=== PATIENT | female | born 1980 | race Caucasian/White ===

== ENCOUNTER → 2023-12-06 06:38 | Outpatient (REF) | payer OTHER, SELFPAY ==
[2023-12-06 09:05] LABS: % Basophils 0.4 % (0-2); % Immature Granulocytes 0.4 % (0-0.5); % Lymphocytes 34.3 % (20.5-51.1); % Monocytes 11.4 % (1.7-9.3); % Neutrophils 51.5 % (42.2-75.2); Absolute Eosinophils 0.1 10^3/uL (0-0.7); Absolute Lymphocytes 1.9 10^3/uL (1.2-3.4); Absolute Monocytes 0.6 10^3/uL (0.1-0.6); Absolute Neutrophils 2.8 10^3/uL (1.4-6.5); Hematocrit 37.8 % (37.0-47.0); Mean Corp Hgb Conc. 34.4 g/dL (33.0-37.0); Mean Corpuscular Hgb 32.5 pg (27.0-31.0); Mean Corpuscular Volume 94.5 fL (81.0-99.0); Mean Platelet Volume 8.6 fL (7.4-10.4); Nucleated Red Blood Cells % 0 %; Platelet Count 232 10^3/uL (130-400); Red Cell Dist. Width 12.2 % (11.5-14.5); White Blood Cell Count 5.4 10^3/uL (4.8-10.8)
[2023-12-06 09:19] LABS: ALT (SGPT) 15 U/L (0-35); AST (SGOT) 21 U/L (14-36); Alkaline Phosphatase 75 U/L (38-126); Blood Urea Nitrogen 21 mg/dl (7-17); Calcium 8.9 mg/dl (8.4-10.2); Carbon Dioxide 24 mmol/L (22-30); Chloride 109 mmol/L (98-107); Glucose 101 mg/dl (70-99); HDL Cholesterol 44 mg/dl; LDL Cholesterol, Calculated 105 mg/dl; Sodium 140 mmol/L (135-145); Total Bilirubin 0.6 mg/dl (0.2-1.3); Total Cholesterol 170 mg/dl (50-199); Total Protein 6.8 g/dl (6.3-8.2); Triglyceride 107 mg/dl (10-149); Uric Acid 4.8 mg/dl (2.5-6.2); Very Low Density Lipoprotein 21 mg/dl (0-30); eGFR > 60.00
[2023-12-06 09:29] LABS: Vitamin D, 25-OH*** 45.6 ng/mL (30-80)
[2023-12-06 09:38] LABS: Glycohemoglobin (HgbA1c) 5.7 % (4.0-5.6)
[2023-12-06 09:43] LABS: Cortisol, Random 15.6 ug/dl
[2023-12-06 09:50] LABS: CRP, Highly Sensitive 5.87 mg/L
[2023-12-06 10:19] LABS: Folate 13.9 ng/ml (2.76-20); Vitamin B12 509 pg/ml (239-931)
[2023-12-06 10:22] LABS: TSH Reflex To Free T4 1.65 uIU/ml (0.47-4.68)
== END ==
LOC: HWLAB 06:38
PROVIDERS: ATTENDING PHYSICIAN Nurse Practitioner Family
DX: R73.03 Prediabetes (principal); E78.1 Pure hyperglyceridemia; E55.9 Vitamin D deficiency, unspecified; I10 Essential (primary) hypertension; R53.83 Other fatigue; R63.2 Polyphagia; E53.8 Deficiency of other specified B group vitamins
CPT/HCPCS: 36415; 80053; 80061; 82306; 82533; 82607; 82746; 83036; 84443; 84550; 85025; 86141

== ENCOUNTER → 2023-12-09 06:53 | Outpatient (REF) | payer OTHER, SELFPAY | LOC: HWRAD 06:53 | PROVIDERS: ATTENDING PHYSICIAN Nurse Practitioner Family; FAMILY PHYSICIAN Family Medicine | DX: R22.1 Localized swelling, mass and lump, neck (principal) | CPT/HCPCS: 76536 ==

== ENCOUNTER 2024-08-28 07:02 | Emergency (ER) | payer OTHER, SELFPAY ==
[2024-08-28 07:04] VITALS: BP 157/110
--- NOTE | 2024-08-28 08:36 | ED.GENMED ---
History of Present Illness
General
Chief Complaint: Anxiety
Source: patient
Exam Limitations: none
Time Seen by Provider: 08/28/24 08:25
Nursing documentation reviewed up to this point in time: agreed with
History of Present Illness
History of Present Illness:
44-year-old female presents emergency department due to feeling dizzy, and with a rapid heart rate in the 140s to 160s that she noted on her [employer] watch. She had a panic attack, and took an Ativan in the waiting room.
Past History
Past History
ED Past Medical History: HTN, Psychiatric (takes medication for depression) and Other (Help syndrome)
ED Past Surgical History: Other (History of laparoscopy and wisdom teeth extraction)
Social History
Tobacco: Non-smoker
Alcohol: None
Drug: None
Personal:
Living: with family
Employment: Employed
Review of Systems
Review of Systems
Allergies reviewed?: Yes
All Other Systems: Not applicable
Constitutional: Reports no symptoms
EENT: Reports no symptoms
Respiratory: Reports no symptoms
Cardiac: Reports palpitations
ABD/GI: Reports no symptoms
: Reports no symptoms
Musculoskeletal: Reports no symptoms
Skin: Reports no symptoms
Neurological: Reports dizzy
Endocrine: Reports no symptoms
Hematologic/Lymphatic: Reports no symptoms
Phy Exam
Physical Exam
Physical Exam:
Physical Exam
General: no apparent distress, not acutely ill
Neck: supple. no meningeal signs. normal posterior pharynx
Heart: s1/s2 tachycardia, regular rhythm, no murmur. equal radial
pulses.
HEENT: Pupils equal round reactive to light, EOMI
Lungs: no acute respiratory distress. clear bilaterally
Abdomen: normal bowel sounds. not tender. no CVAT
Neuro: alert and oriented. no focal neurological deficits cranial nerves II through XII intact
Skin: no rash
Psychiatric: well kept. interactive and cooperative
Extremities: no edema. no calf tenderness. negative homans. good distal pulses
Scores
Heart Score for Chest Pain Patients
STEMI patient?: No
History: Slightly or Non-Suspicious
ECG: Normal
Age: </= 45 years
Risk Factors: No Risk Factors
Troponin: </= Normal Limit
Heart Score for Chest Pain Patients: 0
Heart Score Risk: 2.5% MACE over next 6 weeks
Course
Orders/Labs/Results
Orders:
Orders
08/28/24 07:04
Electrocardiogram (*1) Urgent
Reason for Study: Bradycardia / Tachycardia
EKG- Treatment ONCE
08/28/24 08:45
Cardiac Monitoring- Treatment ONCE
IV Insert/Care/Rem.- Treatment PRN
08/28/24 08:56
Complete Blood Count/With Diff Urgent
Troponin I Urgent
08/28/24 08:57
Comprehensive Metabolic Panel Urgent
D-Dimer Urgent
HCG, Serum Qualitative Screen Urgent
Magnesium Urgent
TSH Reflex To Free T4 Urgent
08/28/24 09:27
Add On- LAB Urgent
Tests Added?: hcg serum qual
08/28/24 09:30
CT Chest PE Study Urgent
Comment:
Reason For Exam: chest pain, tachycardia, elevated ddimer
Abnormal Lab Results
08/28/24 08/28/24
08:56 08:57
RBC 4.09 L 10^6/uL
(4.20-5.40)
MCH 33.5 H pg
(27.0-31.0)
Absolute Lymphs (auto) 1.0 L 10^3/uL
(1.2-3.4)
Neutrophils % 75.8 H %
(42.2-75.2)
Lymphocytes % 14.9 L %
(20.5-51.1)
D-Dimer 0.58 H ug/mlFEU
(0.00-0.50)
BUN 21 H mg/dl
(7-17)
Glucose 157 H mg/dl
(70-99)
08/28/24 08:56
08/28/24 08:57
Vital Signs
Initial and Last Documented VS:
Initial Vital Signs
Temp Pulse Resp BP Pulse Ox
98.7 F 130 20 157/110 97
08/28/24 07:04 08/28/24 07:04 08/28/24 07:04 08/28/24 07:04 08/28/24 07:04
Last Documented Vital Signs
Temp Pulse Resp BP Pulse Ox
98.7 F 108 18 144/101 98
08/28/24 07:04 08/28/24 09:02 08/28/24 09:02 08/28/24 09:00 08/28/24 09:06
MDM/Problems Addressed
Differential Diagnosis Includes:
ACS, PE, dissection, anxiety, dysrhythmia
MDM/Problems Addressed:
44-year-old female with dizziness, palpitations. No signs of dysrhythmia. D-dimer elevated, negative CT of chest. Do not suspect ACS, PE or dissection. No signs of dysrhythmia. Patient stable for discharge. Follow-up with cardiology. Return
precautions given.
*Radiology
Radiology exam reviewed: radiology read reviewed (CT chest no acute findings, no PE, hiatal hernia)
*Pulse Oximetry
Patient hypoxic: no
*EKG
Interpreted by ED Provider?: Yes
EKG Intrepretation Date: 08/28/24
EKG Intrepretation Time: 07:06
Interpretation: abnormal
Comparison EKG: no changes
Heart Rate: 116
Rate: tachycardiac
Rhythm: sinus tachycardia
[place]: normal axis
Interval: long QT
QRS Pattern: normal QRS
Ischemia: no ischemia
*Hydroblaster Interpretation
Rate: normal
Interpretation: normal
Heart Rate: 100
Rhythm: sinus
*Critical Care Note
Total Time (30-74mins, 75-104mins- exclusive of procedures): Not Applicable
Data Reviewed
Review of Other/Old Records Reveals: Testing (Prior EKG reviewed, no significant changes)
Source: records
Patient Management
Social determinants of health affecting care: Living situation and Strong social support
Escalation/DeEscalation of care consider admission/obs:
Admit not indicated
ED Attending Note
-
Portions of this chart may have been created with voice recognition software.� Occasional wrong word or��sound alike� substitutions may have occurred due to the inherent limitations of voice recognition software.
Discharge Plan
Departure
Patient Disposition: Home (Routine Discharge)
Date of Disposition: 08/28/24
Time of Disposition: 10:16
Patient with high blood pressure during this ER visit?: Yes
Condition: Good
Discharge Problem:
Heart palpitations, Hernia, hiatal
Instructions: Palpitations, Hiatal hernia - Discharge instructions, BLOOD PRESSURE
Prescriptions:
No Action
escitalopram oxalate 10 MG tablet
20 mg PO DAILY
triamcinolone acetonide [Nasacort] 10.8 ML aerosol,spray
1 spray NS DAILY
lorazepam 1 MG tablet
1 mg PO Q4HPRN PRN (Reason: anxiety)
levocetirizine [Xyzal] 5 MG tablet
5 mg PO DAILY
Referrals:
Janine Mcnamara MD [Family Provider] -
Activity Restrictions/Additional Instructions:
Follow-up with your cleaner furniture. Return for any concerns.
Interventions
Interventions:
*Risk Screen - Suicide Last Done: 08/28/24 07:04
*General Assessment Last Done: 08/28/24 09:06
*Neglect/Abuse Screening Last Done: 08/28/24 07:04
ED- Fall Risk Assessment Last Done: 08/28/24 09:06
*ED COVID-19 Vaccine History Last Done: 08/28/24 09:06
ED-Psychological Assessment Last Done: 08/28/24 09:06
Discharge Date and Time
Print Language: [place]
[2024-08-28 09:00] VITALS: BP 144/101
[2024-08-28 09:13] LABS: % Basophils 0.3 % (0-2); % Eosinophils 0.3 % (0-6); % Immature Granulocytes 0.3 % (0-0.5); % Lymphocytes 14.9 % (20.5-51.1); % Monocytes 8.4 % (1.7-9.3); % Neutrophils 75.8 % (42.2-75.2); Absolute Monocytes 0.6 10^3/uL (0.1-0.6); Absolute Neutrophils 4.9 10^3/uL (1.4-6.5); Hematocrit 39.9 % (37.0-47.0); Hemoglobin 13.7 g/dL (12.0-16.0); Mean Corp Hgb Conc. 34.3 g/dL (33.0-37.0); Mean Corpuscular Hgb 33.5 pg (27.0-31.0); Mean Corpuscular Volume 97.6 fL (81.0-99.0); Mean Platelet Volume 8.5 fL (7.4-10.4); Nucleated Red Blood Cells % 0 %; Platelet Count 229 10^3/uL (130-400); Red Blood Cell Count 4.09 10^6/uL (4.20-5.40); White Blood Cell Count 6.5 10^3/uL (4.8-10.8)
[2024-08-28 09:24] LABS: D-Dimer 0.58 ug/mlFEU (0.00-0.50)
[2024-08-28 09:29] LABS: ALT (SGPT) 17 U/L (0-35); AST (SGOT) 17 U/L (14-36); Alkaline Phosphatase 86 U/L (38-126); Blood Urea Nitrogen 21 mg/dl (7-17); Calcium 9.2 mg/dl (8.4-10.2); Carbon Dioxide 25 mmol/L (22-30); Chloride 107 mmol/L (98-107); Glucose 157 mg/dl (70-99); Potassium 4.2 mmol/L (3.5-5.1); Sodium 140 mmol/L (135-145); Total Bilirubin 0.4 mg/dl (0.2-1.3); Total Protein 7.3 g/dl (6.3-8.2); eGFR > 60.00
[2024-08-28 09:39] LABS: Troponin I < 0.012 ng/ml
[2024-08-28 09:58] LABS: TSH Reflex To Free T4 1.82 uIU/ml (0.47-4.68)
[2024-08-28 10:07] LABS: HCG, Serum Qualitative Screen Negative
== END 2024-08-28 11:07 | disposition home or self-care (01) ==
LOC: EMR 07:02
PROVIDERS: EMERGENCY PHYSICIAN Emergency Medicine; FAMILY PHYSICIAN Family Medicine
DX: R00.2 Palpitations (principal); K44.9 Diaphragmatic hernia without obstruction or gangrene; I10 Essential (primary) hypertension
CPT/HCPCS: 99285; 71275; 80053; 83735; 84443; 84484; 84703; 85025; 85379; 93005; Q9967

== ENCOUNTER 2025-04-02 08:22 | Emergency (ER) | payer OTHER, SELFPAY ==
[2025-04-02] VITALS (7 sets, daily range): BP systolic 136–184; BP diastolic 90–124
--- NOTE | 2025-04-02 08:46 | ED.GENMED ---
History of Present Illness
General
Chief Complaint: Heart Rate Problem
Source: patient
Exam Limitations: none
Time Seen by Provider: 04/02/25 08:32
History of Present Illness
History of Present Illness:
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 She was sitting talking to a coworker and her watch alerted her that she was having a high heart rate. She feels a regular but
fast heart rate. She denies chest pain but does note some lightheadedness and shortness of breath. She is on control. No recent travel or surgery. No leg swelling or calf pain. She does note she has been dealing with a cough in the past
several days. No rash. No prior thyroid issues. She has been diagnosed with anxiety in the past she took an Ativan this morning but it did not seem to help.
Past History
Past History
ED Past Medical History: HTN, Psychiatric (takes medication for depression) and Other (Help syndrome)
ED Past Surgical History: Other (History of laparoscopy and wisdom teeth extraction)
Social History
Tobacco: Non-smoker
Alcohol: None
Drug: None
Personal:
Living: with family
Employment: Employed
Phy Exam
Physical Exam
Physical Exam:
General: Well-appearing female no acute respiratory distress
HEENT: Normocephalic atraumatic
Heart: Tachycardic but regular
Lungs: Clear no wheeze extremities: No cyanosis or edema
Skin warm no rash
Course
Orders/Labs/Results
Orders:
Orders
04/02/25
Electrocardiogram (*1) Stat
Comment: DONE
Electrocardiogram (*1) Stat
Reason for Study: Chest Pain
Comment: already done
04/02/25 08:45
CT Chest PE Study Urgent
Comment:
Reason For Exam: sob
0.9% Sodium Chloride 1000 ml [Nss] 1,000 ml IV BOLUS
diazePAM [Valium Injection] 2 mg IV NOW STA
04/02/25 09:02
Comprehensive Metabolic Panel Urgent
HCG, Serum Qualitative Screen Urgent
Comment: ADDON
TSH Reflex To Free T4 Urgent
04/02/25 09:03
COVID-19 Antigen Urgent
Source: Nasal Swab
Influenza A+B Rapid Molecular Urgent
FERNANDA Source: Nasal Swab
Specimen Description:
04/02/25 09:04
Complete Blood Count/With Diff Urgent
04/02/25 09:57
Add On- LAB Urgent
Tests Added?: serum hcg
04/02/25 12:00
Metoprolol [Lopressor] 5 mg IV NOW STA
Abnormal Lab Results
04/02/25 04/02/25
09:02 09:04
MCH 33.2 H pg
(27.0-31.0)
Monocytes % 10.5 H %
(1.7-9.3)
Chloride 108 H mmol/L
(98-107)
Glucose 160 H mg/dl
(70-99)
ALT 47 H U/L
(0-35)
04/02/25 09:04
04/02/25 09:02
Vital Signs
Initial and Last Documented VS:
Initial Vital Signs
Temp Pulse Resp BP Pulse Ox
98.2 F 128 16 184/124 98
04/02/25 08:25 04/02/25 08:25 04/02/25 08:25 04/02/25 08:25 04/02/25 08:25
Last Documented Vital Signs
Temp Pulse Resp BP Pulse Ox
98.2 F 93 14 155/107 97
04/02/25 08:25 04/02/25 12:15 04/02/25 12:15 04/02/25 12:06 04/02/25 12:15
MDM/Problems Addressed
Differential Diagnosis Includes:
Patient presents with palpitations. She is in sinus tachycardia on the monitor.
KG personally reviewed by me demonstrates sinus tachycardia with a rate of 135. No ischemic changes.
Differential for sinus tachycardia could be fever, dehydration electrolyte abnormality anemia pulmonary embolism anxiety or thyroid disorder
Check labs. Given that fact she is on oral contraceptives and is tachycardic we will order PE study of the chest. She has had PE studies of the chest in the past which demonstrate a hiatal hernia.
*Pulse Oximetry
SaO2: 98
Oxygen Mode of Delivery: Room air
Patient hypoxic: no
*Critical Care Note
Total Time (30-74mins, 75-104mins- exclusive of procedures): Not Applicable
Update Note
Update Note:
EKG personally reviewed and demonstrates sinus tachycardia with a rate of 122
CT negative for acute finding. Patient feels better after getting Lopressor IV. Heart rate responded well. Will prescribe metoprolol to take at home and have her follow-up with cardiology. No indication for admission. Question possible
underlying atrial tachycardia with persistent tachycardia
ED Attending Note
-
Portions of this chart may have been created with voice recognition software.� Occasional wrong word or��sound alike� substitutions may have occurred due to the inherent limitations of voice recognition software.
Discharge Plan
Departure
Patient Disposition: Home (Routine Discharge)
Date of Disposition: 04/02/25
Time of Disposition: 13:08
Patient with high blood pressure during this ER visit?: No
Discharge Problem:
Tachycardia
Instructions: Palpitations (DC), Chest Pain CBC Follow Up
Prescriptions:
New
metoprolol succinate 25 mg tablet extended release 24 hr
12.5 mg PO DAILY Qty: 30 0RF
No Action
escitalopram oxalate 10 MG tablet
20 mg PO DAILY
triamcinolone acetonide [Nasacort] 10.8 ML aerosol,spray
1 spray NS DAILY
lorazepam 1 MG tablet
1 mg PO Q4HPRN PRN (Reason: anxiety)
levocetirizine [Xyzal] 5 MG tablet
5 mg PO DAILY
Referrals:
Janine Mcnamara MD [Family Provider, [facility]]
Activity Restrictions/Additional Instructions:
Stay hydrated. Take medicine as directed. Follow-up with cardiology for further evaluation
Interventions
Interventions:
*Risk Screen - Suicide Last Done: 04/02/25 08:25
*General Assessment Last Done: 04/02/25 09:26
*Neglect/Abuse Screening Last Done: 04/02/25 08:25
*ED- Fall Risk Assessment Last Done: 04/02/25 09:26
*ED COVID-19 Vaccine History Last Done: 04/02/25 09:26
ED- Cardiac Assessment Last Done: 04/02/25 09:26
ED- Pulmonary Assessment Last Done: 04/02/25 09:26
Discharge Date and Time
Print Language: [place]
[2025-04-02] MEDS: NSS 1000 IV (09:10)
[2025-04-02] MEDS: VALIUM INJECTION 2 MG IV (09:20)
[2025-04-02 09:22] LABS: Hematocrit 40.2 % (37.0-47.0); Hemoglobin 14.0 g/dL (12.0-16.0); Mean Corp Hgb Conc. 34.8 g/dL (33.0-37.0); Mean Corpuscular Volume 95.3 fL (81.0-99.0); Nucleated Red Blood Cells % 0 %; Platelet Count 215 10^3/uL (130-400); Red Cell Dist. Width 12.3 % (11.5-14.5)
[2025-04-02 09:39] LABS: ALT (SGPT) 47 U/L (0-35); AST (SGOT) 28 U/L (14-36); Albumin 4.6 g/dl (3.5-5.0); Alkaline Phosphatase 93 U/L (38-126); Blood Urea Nitrogen 15 mg/dl (7-17); Calcium 9.3 mg/dl (8.4-10.2); Carbon Dioxide 23 mmol/L (22-30); Chloride 108 mmol/L (98-107); Glucose 160 mg/dl (70-99); Potassium 3.9 mmol/L (3.5-5.1); Sodium 140 mmol/L (135-145); Total Protein 8.0 g/dl (6.3-8.2); eGFR > 60.00
[2025-04-02 09:45] LABS: COVID-19 Antigen Negative (Negative)
[2025-04-02 10:52] LABS: HCG, Serum Qualitative Screen Negative
[2025-04-02] MEDS: LOPRESSOR 5 MG IV (12:06)
--- NOTE | 2025-04-02 13:32 | EDRN ---
d/c instructions reviewed with pt. cardiology to call pt to make appt. no further questions or concerns at this time
== END 2025-04-02 13:39 | disposition home or self-care (01) ==
LOC: EMR 08:22
PROVIDERS: Physician Assistant; EMERGENCY PHYSICIAN Emergency Medicine; FAMILY PHYSICIAN Family Medicine
DX: R00.0 Tachycardia, unspecified (principal); I10 Essential (primary) hypertension; R42 Dizziness and giddiness; R06.02 Shortness of breath; Z79.3 Long term (current) use of hormonal contraceptives; F41.9 Anxiety disorder, unspecified; F32.A Depression, unspecified; Z11.52 Encounter for screening for COVID-19; Z79.899 Other long term (current) drug therapy
CPT/HCPCS: 96374; 96375; 96361; 99284; 71275; 80053; 84443; 84703; 85025; 87502; 87811; 93005; Q9967

== ENCOUNTER 2025-04-03 13:16 | Emergency (ER) | payer OTHER, SELFPAY ==
[2025-04-03 13:20] VITALS: BP 162/126
--- NOTE | 2025-04-03 14:18 | ED.GENMED ---
History of Present Illness
General
Chief Complaint: Blood Pressure Problem
Source: patient
Exam Limitations: none
Time Seen by Provider: 04/03/25 13:46
History of Present Illness
History of Present Illness:
44-year-old female presents for reevaluation. She was here yesterday. She was seen by this provider. She was here for elevated heart rate and blood pressure. Full workup was done yesterday including PE study labs and thyroid study. She felt
better after IV Lopressor. She was prescribed metoprolol extended release 12-1/2 mg. She incidentally took 25 mg today felt tired took a nap and upon waking up from her nap she noticed her heart rate and blood pressure were elevated. She also
took an Ativan at home as she was feeling if she was going to get anxious. No other complaints at this time
Past History
Past History
ED Past Medical History: HTN, Psychiatric (takes medication for depression) and Other (Help syndrome)
ED Past Surgical History: Other (History of laparoscopy and wisdom teeth extraction)
Social History
Tobacco: Non-smoker
Alcohol: None
Drug: None
Personal:
Living: with family
Employment: Employed
Phy Exam
Physical Exam
Physical Exam:
General: Well-appearing female no acute respiratory distress
HEENT: Normal cephalic atraumatic
Heart: Regular rate and rhythm
Lungs: Clear no wheeze
Course
Orders/Labs/Results
Orders:
Orders
04/03/25 13:40
EKG [Electrocardiogram (*1)] Urgent
Reason for Study: Hypertension, Benign
EKG- Treatment ONCE
Vital Signs
Initial and Last Documented VS:
Initial Vital Signs
Temp Pulse Resp BP Pulse Ox
98.4 F 119 22 162/126 97
04/03/25 13:20 04/03/25 13:20 04/03/25 13:20 04/03/25 13:20 04/03/25 13:20
Last Documented Vital Signs
Temp Pulse Resp BP Pulse Ox
98.4 F 119 22 162/126 97
04/03/25 13:20 04/03/25 13:20 04/03/25 13:20 04/03/25 13:20 04/03/25 14:20
MDM/Problems Addressed
Differential Diagnosis Includes:
Patient's heart rate actually improved throughout my time of talking to her in the room. She was in the 80s when I left the room. Blood pressure still slightly high. She took her first dose of metoprolol today. Advised that it may take some time
to really take full effect. Reviewed workup from yesterday. EKG today showed a heart rate of 103 but again she is 86 in the monitor. No indication for any further workup today will provide reassurance
*Pulse Oximetry
SaO2: 97
Oxygen Mode of Delivery: Room air
Patient hypoxic: no
*Critical Care Note
Total Time (30-74mins, 75-104mins- exclusive of procedures): Not Applicable
Update Note
Update Note:
Patient reexamined heart rate and blood pressure have improved despite sitting and waiting. Patient does have high blood pressure coupled with anxiety. Anxiety may be driving the blood pressure up. Education provided. She is following up with
cardiology this week. Stable for discharge.
ED Attending Note
-
Portions of this chart may have been created with voice recognition software.� Occasional wrong word or��sound alike� substitutions may have occurred due to the inherent limitations of voice recognition software.
Discharge Plan
Departure
Patient Disposition: Home (Routine Discharge)
Date of Disposition: 04/03/25
Time of Disposition: 16:27
Patient with high blood pressure during this ER visit?: Yes
Discharge Problem:
Hypertension
Instructions: High Blood Pressure (DC)
Prescriptions:
No Action
escitalopram oxalate 10 MG tablet
20 mg PO DAILY
triamcinolone acetonide [Nasacort] 10.8 ML aerosol,spray
1 spray NS DAILY
lorazepam 1 MG tablet
1 mg PO Q4HPRN PRN (Reason: anxiety)
levocetirizine [Xyzal] 5 MG tablet
5 mg PO DAILY
metoprolol succinate 25 mg tablet extended release 24 hr
12.5 mg PO DAILY Qty: 30 0RF
Referrals:
Janine Mcnamara MD [Family Provider, Family Practice]
Activity Restrictions/Additional Instructions:
Continue with metoprolol. Return here if needed. Follow-up with cardiology as planned
Interventions
Interventions:
*Risk Screen - Suicide Last Done: 04/03/25 13:20
*General Assessment Last Done: 04/03/25 13:20
*Neglect/Abuse Screening Last Done: 04/03/25 13:20
ED- Cardiac Assessment Last Done: 04/03/25 14:06
ED- Neurological Assessment Last Done: 04/03/25 14:06
ED- Pulmonary Assessment Last Done: 04/03/25 14:06
Discharge Date and Time
Print Language: AMHARIC
[2025-04-03 15:23] VITALS: BP 155/114
[2025-04-03 15:29] VITALS: BP 150/105
[2025-04-03 16:00] VITALS: BP 138/105
== END 2025-04-03 17:05 | disposition home or self-care (01) ==
LOC: EMR 13:16
PROVIDERS: EMERGENCY PHYSICIAN Emergency Medicine; FAMILY PHYSICIAN Family Medicine
DX: I10 Essential (primary) hypertension (principal); F32.A Depression, unspecified
CPT/HCPCS: 99283; 93005

== ENCOUNTER → 2025-04-16 15:44 | Outpatient (REF) | payer OTHER, SELFPAY | LOC: HWRCS 15:44 | PROVIDERS: ATTENDING PHYSICIAN Internal Medicine Cardiovascular Disease; FAMILY PHYSICIAN Nurse Practitioner Family | DX: R00.2 Palpitations (principal); R03.0 Elevated blood-pressure reading, without diagnosis of hypertension; R42 Dizziness and giddiness | CPT/HCPCS: 93306 ==